=== PATIENT | female | born 1955 | race Caucasian/White ===

== ENCOUNTER 2019-07-23 14:13 | Emergency (ER) | payer OTHER ==
[2019-07-23 14:33] VITALS: TEMP 98.2; BMI 28.3
--- NOTE | 2019-07-23 15:51 | PDOC ---
History of Present Illness - General Chief Complaint: Weakness Stated Complaint: WEAKNESS Time Seen by Provider: 07/23/19 15:50 Past History - Past Medical History Allergies/Adverse Reactions: Allergies Allergy/AdvReac Type Severity Reaction Status Date / Time No Known Allergies Allergy Verified 07/23/19 14:31 COPD: No - Immunization History Immunization Up to Date: Yes - Psycho Social/Smoking Cessation Hx Smoking History: Never smoked Information on smoking cessation initiated: No Hx Alcohol Use: No Drug/Substance Use Hx: No *Physical Exam - Vital Signs Last Vital Signs Temp Pulse Resp BP Pulse Ox 98.2 F 72 17 101/62 99 07/23/19 14:28 07/23/19 14:28 07/23/19 14:28 07/23/19 14:28 07/23/19 14:28 ED Treatment Course - LABORATORY CBC & Chemistry Diagram: 07/23/19 17:08 07/23/19 17:08 Medical Decision Making - Medical Decision Making 07/23/19 16:28 HPI: 64yo F no PMH presents from home c/o "head cold" and fatigue x1wk, worsened today to point where needed to lean on daughter to stand. Pt describes it as a "head cold", with sinus pressure, rhinorrhea, sneezing, nausea, chills, lightheadedness, b/l ear pain, sore throat, congestion, cough initially dry today produced yellow phlegm, bitemporal pressure type headache, and generalized weakness. Endorses urinary urgency. Took tylenol and theraflu last PM without improvement. Of note, pt has been working without heat this weak so has been very cold. Denies sick contacts, recent travel, recent illness, flu shot, cardiac hx, FHx CAD, fever, vertigo, numbness/tingling, focal weakness, vision changes, shortness of breath, chest pain, palpitations, leg swelling, abdominal pain, blood in stool, diarrhea, constipation, vomiting, dysuria, hematuria, confusion. PCP - [facility] - Dr Geller ROS: Constitutional: Positive for generalized weakness, fatigue, chills. Negative for fever, diaphoresis. HENT: Positive for sore throat, rhinorrhea, congestion, sinus pressure, b/l ear pain. Eyes: Negative for visual disturbance. Respiratory: Positive for cough. Negative for shortness of breath, and wheezing. Cardiovascular: Negative for chest pain, palpitations, and leg swelling. Gastrointestinal: Positive for nausea. Negative for abdominal pain, blood in stool, constipation, diarrhea, and vomiting. Genitourinary: Positive for urinary urgency. Negative for dysuria, flank pain, and hematuria. Musculoskeletal: Negative for myalgias, back pain, and neck pain. Skin: Negative for rash. Neurological: Positive for light-headedness and headache. Negative for vertigo, syncope, weakness, numbness. Psychiatric/Behavioral: Negative for behavioral problems and confusion. PE: Gen: Alert, NAD, comfortable-appearing. HEENT: PERRL, EOMI, dry MM, NCAT. No conjunctival pallor. Sclera are non- icteric. Oropharynx is clear. No uvula deviation or edema, no tonsillar edema. The ear canals and tympanic membranes are normal except for significant cerumen , R>L. CV: Regular rate and rhythm. No murmurs, rubs, or gallops. PULM: No resp distress. CTAB, no wheezes, rales, or rhonchi. ABD: soft, NT/ND, no rebound tenderness or guarding, no CVA tenderness. BACK: No TTP of c/t/l-spine. No step-offs or deformities. MSK: No bony deformities. 2+ pulses in all extremities. NEURO: AAOx3. PERRL. No gross CN deficits. Strength and sensation grossly intact throughout. EXTREMITIES: No cyanosis. No clubbing. No edema. No calf tenderness. PSYCH: Normal mood and thought pattern. SKIN: Warm and dry. Normal capillary refill. No rashes. No jaundice. MDM: 64yo F no PMH presents from home c/o "head cold" and fatigue x1wk, worsened today. Hemodynamically stable, afebrile. Ddx: Most likely dehydration 2/2 viral URI or GI. Due to duration of sx, even if flu positive, no change in management - no flu test indicated. Oropharynx clear - no e/o strep or pharyngitis. TMs normal - no e/o otitis, clean out cerumen and reassess. Due to significant generalized weakness, also consider other dx including UTI, PNA, ACS/DC, arrhythmia, metabolic derangement, or anemia. No neck pain/stiffness, photophobia, fever, or neurologic deficits concerning for meningitis/encephalitis. -CBC,CMP,Mg,Phos,Cardiac profile,UA/UC -EKG -CXR -IVF,Zofran,Tylenol -Dispo: likely d/c home pending w/u 07/23/19 18:02 Cerumen removed curette, hydrogen peroxide, and syringe - pt states improved hearing and resolution of ear pain. Tympanic membranes still normal s/p cerumen removal. 07/23/19 19:04 Labs reviewed: no concerning findings CXR reviewed: no acute chest pathology EKG reviewed: sinus rhythm with PACs, 61bpm, LAD, low voltage QRS, no e/o acute ischemia, no previous EKGs available 07/23/19 19:14 Reassessed - asymptomatic at this time, feels better and stronger, wants to go home. Will dc home with PCP f/u. Return precautions given. Pt understands all dc instructions and all questions were answered. Discharge - Discharge Information Problems reviewed: Yes Clinical Impression/Diagnosis: Cough Condition: Improved Disposition: HOME - Admission No - Follow up/Referral Referrals: Lenard Garcia [Primary Care Provider] - - Patient Discharge Instructions Patient Printed Discharge Instructions: DI for Viral Upper Respiratory Infection -- Adult Additional Instructions: You have been seen in the Emergency Department for your weakness and "head cold. " Your symptoms are most likely due to a viral upper respiratory infection that should improve on its own. At this time, it's most import to stay hydrated and drink plenty of fluids. Take Tylenol as directed on the bottle as needed for fever or pain. Follow-up with your primary care doctor within 1 week. Return to the ED immediately if you experience any new or worsening symptoms such as coughing blood, high fever for multiple days not helped by tylenol, difficulty breathing, chest pain, or difficulty walking. - Post Discharge Activity
[2019-07-23] MEDS ORDERED: ONDANSETRON 4 MG/2 ML VIAL IVPUSH ONE (16:11)
[2019-07-23] MEDS ORDERED: ACETAMINOPHEN 1000 MG/100 ML VIAL (NON FORMULARY) IVPB ONE (16:11)
[2019-07-23] MEDS ORDERED: SODIUM CHLORIDE 0.9% 500 ML INFUS.BAG IV ONE (16:11)
[2019-07-23] MEDS ORDERED: ONDANSETRON 4 MG/2 ML VIAL ONE (17:11)
[2019-07-23] MEDS ORDERED: ACETAMINOPHEN INJECTION 100 ML IVPB ONE (17:11)
[2019-07-23 17:35] LABS: BASO % 0.3 % (0-2.0); HEMATOCRIT 42.3 % (32.4-45.2); HEMOGLOBIN 14.2 GM/dL (10.7-15.3); LYMPH % 15.1 % (8-40); MCH 30.1 pg (25.7-33.7); MCHC 33.5 g/dl (32.0-36.0); MEAN PLT VOLUME 8.7 fl (7.5-11.1); MONO % 6.8 % (3.8-10.2); NEUT % 77.8 % (42.8-82.8); PLATELET COUNT 225 K/MM3 (134-434); RDW 12.9 % (11.6-15.6); WHITE BLOOD COUNT 6.8 K/mm3 (4.0-10.0)
[2019-07-23 17:48] LABS: ALBUMIN 3.5 g/dl (3.4-5.0); BILIRUBIN,TOTAL 0.7 mg/dL (0.2-1); CALCIUM 8.7 mg/dL (8.5-10.1); CREATININE 0.8 mg/dL (0.55-1.3); MAGNESIUM 2.5 mg/dL (1.8-2.4); POTASSIUM 3.7 mmol/L (3.5-5.1); TOT PROT 6.6 g/dl (6.4-8.2)
[2019-07-23 17:50] LABS: EPI CELLS 2.3 /HPF (0-5/HPF); HYALINE CASTS 1 /lpf (0-8); URINE APPEARANCE CLEAR; URINE BACTERIA 10.7 /hpf (NEGATIVE); URINE BILIRUBIN NEGATIVE (NEGATIVE); URINE COLOR YELLOW; URINE GLUCOSE (UA) NEGATIVE (NEGATIVE); URINE KETONE TRACE (NEGATIVE); URINE LEUK ESTERASE TRACE (NEGATIVE); URINE NITRITE NEGATIVE (NEGATIVE); URINE PROTEIN NEGATIVE (NEGATIVE); URINE RBC 16 /hpf (0-4); URINE UROBILINOGEN 0.2 mg/dL (0.2-1.0); URINE WBC 2 /hpf (0-5)
--- NOTE | 2019-07-23 18:44 | PDOC ---
*Physical Exam - Vital Signs Last Vital Signs Temp Pulse Resp BP Pulse Ox 98.2 F 72 17 101/62 99 07/23/19 14:28 07/23/19 14:28 07/23/19 14:28 07/23/19 14:28 07/23/19 14:28 ED Treatment Course - LABORATORY CBC & Chemistry Diagram: 07/23/19 17:08 07/23/19 17:08 - ADDITIONAL ORDERS Additional order review: Laboratory Results 07/23/19 07/23/19 07/23/19 17:10 17:08 17:08 Sodium 139 Potassium 3.7 Chloride 103 Carbon Dioxide 28 Anion Gap 9 BUN 12.0 Creatinine 0.8 Est GFR (CKD-EPI)AfAm 89.67 Est GFR (CKD-EPI)NonAf 77.37 Random Glucose 92 Calcium 8.7 Phosphorus 3.8 Magnesium 2.5 H Total Bilirubin 0.7 AST 26 ALT 21 Alkaline Phosphatase 87 Creatine Kinase Troponin I Total Protein 6.6 Albumin 3.5 Urine Color Yellow Urine Appearance Clear Urine pH 6.0 Ur Specific [place] 1.009 L Urine Protein Negative Urine Glucose (UA) Negative Urine Ketones Trace H Urine Blood 1+ H Urine Nitrite Negative Urine Bilirubin Negative Urine Urobilinogen 0.2 Ur Leukocyte Esterase Trace Urine WBC (Auto) 2 Urine RBC (Auto) 16 Urine Casts (Auto) 1 U Epithel Cells (Auto) 2.3 Urine Bacteria (Auto) 10.7 07/23/19 17:08 Sodium Potassium Chloride Carbon Dioxide Anion Gap BUN Creatinine Est GFR (CKD-EPI)AfAm Est GFR (CKD-EPI)NonAf Random Glucose Calcium Phosphorus Magnesium Total Bilirubin AST ALT Alkaline Phosphatase Creatine Kinase 100 Troponin I < 0.02 Total Protein Albumin Urine Color Urine Appearance Urine pH Ur Specific [place] Urine Protein Urine Glucose (UA) Urine Ketones Urine Blood Urine Nitrite Urine Bilirubin Urine Urobilinogen Ur Leukocyte Esterase Urine WBC (Auto) Urine RBC (Auto) Urine Casts (Auto) U Epithel Cells (Auto) Urine Bacteria (Auto) 07/23/19 17:08 RBC 4.70 MCV 90.0 MCHC 33.5 RDW 12.9 MPV 8.7 Neutrophils % 77.8 Lymphocytes % 15.1 Monocytes % 6.8 Eosinophils % 0.0 Basophils % 0.3 - Medications Given in the ED: ED Medications Discontinued Medications Generic Name Dose Route Start Last Admin Trade Name Freq PRN Reason Stop Dose Admin Acetaminophen 1,000 mg 07/23/19 16:11 07/23/19 17:20 Ofirmev Injection - IVPB 07/23/19 16:12 1,000 mg ONCE ONE Administration Ondansetron HCl 4 mg 07/23/19 16:11 07/23/19 17:20 Zofran Injection IVPUSH 07/23/19 16:12 4 mg ONCE ONE Administration Sodium Chloride 1,000 ml 07/23/19 16:11 07/23/19 17:20 Normal Saline - IV 07/23/19 16:12 1,000 ml ONCE ONE Administration Medical Decision Making - Medical Decision Making 07/23/19 18:44 I accepted the patient on signout. She is awaiting IV hydration and CXR result and then she will be discharged if she is improved. 07/23/19 19:45 CXR normal Pt feels great aftrer hydration and she will be discharged home Discharge - Discharge Information Problems reviewed: Yes Clinical Impression/Diagnosis: Cough Condition: Improved Disposition: HOME - Follow up/Referral Referrals: Lenard Garcia [Primary Care Provider] - - Patient Discharge Instructions Patient Printed Discharge Instructions: DI for Viral Upper Respiratory Infection -- Adult Additional Instructions: You have been seen in the Emergency Department for your weakness and "head cold. " Your symptoms are most likely due to a viral upper respiratory infection that should improve on its own. At this time, it's most import to stay hydrated and drink plenty of fluids. Take Tylenol as directed on the bottle as needed for fever or pain. Follow-up with your primary care doctor within 1 week. Return to the ED immediately if you experience any new or worsening symptoms such as coughing blood, high fever for multiple days not helped by tylenol, difficulty breathing, chest pain, or difficulty walking. - Post Discharge Activity
[2019-07-23 19:44] VITALS: BP 102/53; PULSE 59
--- NOTE | 2019-07-24 13:33 | EKG ---
Test Reason : Blood Pressure : / mmHG Vent. Rate : 061 BPM Atrial Rate : 061 BPM P-R Int : 140 ms QRS Dur : 080 ms QT Int : 446 ms P-R-T Axes : 066 -42 052 degrees QTc Int : 448 ms SINUS RHYTHM WITH PREMATURE ATRIAL COMPLEXES LEFT AXIS DEVIATION LOW VOLTAGE QRS ABNORMAL ECG NO PREVIOUS ECGS AVAILABLE Confirmed by KIKO GREER MD ([id number]) on 07/24/2019 1:33:09 PM Referred By: Confirmed By:KIKO GREER MD
--- NOTE | 2019-08-04 09:44 | PDOC ---
Documentation entered by Lucía Macedo SCRIBE, acting as scribe for Kaylene Tuttle MD. Kaylene Tuttle MD: This documentation has been prepared by the Hellen stanton Joy, SCRIBE, under my direction and personally reviewed by me in its entirety. I confirm that the documentation accurately reflects all work, treatment, procedures, and medical decision making performed by me. Attending Attestation - Resident Resident Name: RoninoahShaina - ED Attending Attestation I have performed the following: I have examined & evaluated the patient, The case was reviewed & discussed with the resident, I agree w/resident's findings & plan, Exceptions are as noted - HPI HPI: 07/23/19 16:49 The patient is a 64 year old female with no significant past medical history who presents to the ED with x1 week of "head cold" symptoms. As per patient, she has been having symptoms of cough, sinus congestion, ear pressure, rhinorrhea, feeling lightheaded, and generalized weakness. Patient adds that she has to lean on her daughter in order to walk. Patient adds that her symptoms have been worsening, and today she developed yellow productive cough and urinary urgency. Patient also endorses having hx of UTIs. Patient denies sick contact and recent travel. Denies chest pain, focal weakness/numbness, or shortness of breath. Denies fever, nausea, vomiting, diarrhea and constipation. Denies dysuria, frequency, and hematuria. Allergies: NKA PCP: Dr. Garcia - Physicial Exam PE: 07/23/19 16:52 GENERAL: Awake, alert, and fully oriented, in no acute distress. Non toxic appearing, appears younger than stated age. EYES: PERRLA, EOMI, sclera anicteric, conjunctiva clear ENT: Auricles normal inspection, hearing grossly normal, nares with mild congestion, oropharynx clear without exudates. Moist mucosa NECK: Normal ROM, supple, no lymphadenopathy, JVD, or masses LUNGS: Breath sounds equal, clear to auscultation bilaterally. No wheezes, and no crackles HEART: Regular rate and rhythm, normal S1 and S2, no murmurs, rubs or gallops ABDOMEN: Soft, nontender, normoactive bowel sounds. No guarding, no rebound. No masses EXTREMITIES: Normal range of motion, no edema. No cords, erythema, or tenderness BACK: No midline spinal tenderness in cervical/thoracic/lumbar region NEUROLOGICAL: Normal speech, cranial nerves intact, equal strength and sensation b/l SKIN: Warm, Dry, normal turgor, no rashes or lesions noted. Heart Score/ECG Review #1 07/23/19 17:40 Twelve-lead EKG was performed and reviewed by me. Sinus rhythm, rate 61. Left axis deviation. No ST elevations or T wave inversions
== END 2019-07-23 19:45 | disposition home or self-care (01) ==
LOC: JER 14:13
PROC: 3E033NZ Introduction of Analgesics, Hypnotics, Sedatives into Peripheral Vein, Percutaneous Approach (ICD-10-PCS; principal; 2019-07-23)
PROC: 3E033GC Introduction of Other Therapeutic Substance into Peripheral Vein, Percutaneous Approach (ICD-10-PCS; 2019-07-23)
PROC: 3E1B78Z Irrigation of Ear using Irrigating Substance, Via Natural or Artificial Opening (ICD-10-PCS; 2019-07-23)
DX: J06.9 Acute upper respiratory infection, unspecified (principal); B97.89 Other viral agents as the cause of diseases classified elsewhere; H61.20 Impacted cerumen, unspecified ear
CPT/HCPCS: 36415; 71046-TC-FY; 80053; 81003; 82550; 83735; 84100; 84484; 85025; 87077; 87086; 93005; 93010; 99283-25; J0131